=== PATIENT | female | born 1965 | race Caucasian/White ===

== ENCOUNTER 2025-03-05 12:01 | Emergency (ER) | payer BC, SELFPAY ==
[2025-03-05 12:03] VITALS: BP 124/83
[2025-03-05 12:29] LABS: % Basophils 1.1 % (0-2); % Eosinophils 2.3 % (0-6); % Immature Granulocytes 0.3 % (0-0.5); % Lymphocytes 30.8 % (20.5-51.1); % Monocytes 5.6 % (1.7-9.3); % Neutrophils 59.9 % (42.2-75.2); Absolute Basophils 0.1 10^3/uL (0-0.2); Absolute Eosinophils 0.3 10^3/uL (0-0.7); Absolute Lymphocytes 3.3 10^3/uL (1.2-3.4); Absolute Monocytes 0.6 10^3/uL (0.1-0.6); Absolute Neutrophils 6.4 10^3/uL (1.4-6.5); Hematocrit 37.6 % (37.0-47.0); Hemoglobin 12.9 g/dL (12.0-16.0); Mean Corp Hgb Conc. 34.3 g/dL (33.0-37.0); Mean Corpuscular Hgb 30.1 pg (27.0-31.0); Mean Corpuscular Volume 87.6 fL (81.0-99.0); Mean Platelet Volume 10.2 fL (7.4-10.4); Nucleated Red Blood Cells % 0 %; Platelet Count 382 10^3/uL (130-400); Red Blood Cell Count 4.29 10^6/uL (4.20-5.40); Red Cell Dist. Width 13.1 % (11.5-14.5); White Blood Cell Count 10.7 10^3/uL (4.8-10.8)
[2025-03-05 12:39] LABS: ALT (SGPT) 24 U/L (0-35); AST (SGOT) 21 U/L (14-36); Alkaline Phosphatase 70 U/L (38-126); Blood Urea Nitrogen 14 mg/dl (7-17); Calcium 10.1 mg/dl (8.4-10.2); Carbon Dioxide 23 mmol/L (22-30); Chloride 109 mmol/L (98-107); Glucose 91 mg/dl (70-99); Potassium 4.4 mmol/L (3.5-5.1); Sodium 140 mmol/L (135-145); Total Bilirubin 0.5 mg/dl (0.2-1.3); Total Protein 7.6 g/dl (6.3-8.2); eGFR > 60.00
[2025-03-05 12:49] LABS: Troponin I < 0.012 ng/ml
[2025-03-05 13:41] VITALS: BP 111/70
--- NOTE | 2025-03-05 13:54 | ED.GENMED ---
History of Present Illness
General
Chief Complaint: Chest Pain
Source: patient
Exam Limitations: none
Time Seen by Provider: 03/05/25 13:30
History of Present Illness
History of Present Illness:
59yoF with a history of depression presenting with her for evaluation of palpitations. Patient was sick with COVID about 2 weeks ago. She was prescribed Paxlovid but stopped taking this after several days due to diarrhea. She started to
experience palpitations with activity about a week and a half ago. She states her heart rate will go up to the 130-140 range with activity and she experiences lightheadedness and sweating. She has minimal symptoms at rest. She was seen by her PCP
last week for the same and had an EKG which showed sinus tachycardia. She was referred to cardiology but does not have an appointment until March 22. Patient's heart rate went up to 130s again today while she was walking in her home so she decided
to come to the ED. She denies any chest pain or syncope. No caffeine or alcohol use. No prior history of heart disease.
Phy Exam
General Physical Exam
General Presentation: well appearing and no apparent distress
General Skin: warm and dry
General Habitus: normal
General Mental: alert
ENT Exam
ENT Exam: normocephalic
Cardiovascular Exam
Cardiovascular Exam: regular rate/rhythm, no edema, no murmur and normal peripheral pulses
Pulmonary Exam
Pulmonary Exam: lungs clear, no respiratory distress, no rales, no crackles, no rhonchi and no wheezing
Neurological Exam
Neurological Exam: alert
Gina Coma Scale
Eye Opening: Spontaneous
Verbal Response: Oriented
Motor Response: Obeys Commands
GCS Total Score: 15
Skin Exam
Skin Exam: normal color and warm/dry
Psychiatric Exam
Psychiatric Exam: normal mood/affect
Scores
Heart Score for Chest Pain Patients
STEMI patient?: No
History: Slightly or Non-Suspicious
ECG: Normal
Age: >45 - <65 years
Risk Factors: No Risk Factors
Troponin: </= Normal Limit
Heart Score for Chest Pain Patients: 1
Heart Score Risk: 2.5% MACE over next 6 weeks
Course
Orders/Labs/Results
Orders:
Orders
03/05/25 12:03
Electrocardiogram (*1) Urgent
Reason for Study: Chest Pain
EKG- Treatment ONCE
03/05/25 12:16
Complete Blood Count/With Diff Urgent
Comprehensive Metabolic Panel Urgent
Magnesium Urgent
Comment: ADD ON
TSH Urgent
Comment: ADD ON
Troponin I Urgent
03/05/25 13:30
Add On- LAB Urgent
Tests Added?: TSH, magnesium
03/05/25 13:33
Cardiac Monitoring- Treatment ONCE
03/05/25 13:51
0.9% Sodium Chloride 1000 ml [Nss] 1,000 ml IV BOLUS
03/05/25 14:01
D-Dimer Urgent
Abnormal Lab Results
03/05/25
12:16
Chloride 109 H mmol/L
(98-107)
03/05/25 12:16
03/05/25 12:16
Vital Signs
Initial and Last Documented VS:
Initial Vital Signs
Temp Pulse Resp BP Pulse Ox
98.0 F 98 16 124/83 98
03/05/25 12:03 03/05/25 12:03 03/05/25 12:03 03/05/25 12:03 03/05/25 12:03
Last Documented Vital Signs
Temp Pulse Resp BP Pulse Ox
98.0 F 86 14 108/71 96
03/05/25 12:03 03/05/25 15:00 03/05/25 15:00 03/05/25 15:00 03/05/25 15:00
MDM/Problems Addressed
Differential Diagnosis Includes:
59yoF here with palpitations x 1.5 weeks. Started after having COVID. Reports tachycardia and dizziness with ambulation. No symptoms at rest. HR goes up to the 130-140 range at the highest. VSS. She is well appearing in no distress. Exam reassuring.
Differential diagnosis includes but is not limited to: arrhythmia, orthostasis, thyroid dysfunction, electrolyte abnormality, less likely but consider PE
Initial ED plan: Workup obtained in triage. Electrolytes and troponin WNL. EKG shows sinus tachycardia with a HR 101. No ectopy or ischemic changes. Will add on magnesium, TSH, and D-dimer. IV fluid bolus.
*EKG
Interpreted by ED Provider?: Yes
EKG Intrepretation Date: 03/05/25
Heart Rate: 101
Rate: tachycardiac
Rhythm: sinus
[place]: normal axis
Interval: normal interval
QRS Pattern: normal QRS
Ischemia: no ischemia
*Critical Care Note
Total Time (30-74mins, 75-104mins- exclusive of procedures): Not Applicable
Update Note
Update Note:
Magnesium and TSH normal. D-dimer normal making PE very unlikely. No telemetry events during ED stay. No indication for hospitalization. Unclear etiology of symptoms. Possible inappropriate sinus tach/autonomic dysfunction from recent COVID
infection. Advised increased fluid and salt intake. Patient has an appt with cardiology in 2.5 weeks. ED return precautions reviewed. Patient discharged in stable condition.
ED Attending Note
-
Portions of this chart may have been created with voice recognition software.� Occasional wrong word or��sound alike� substitutions may have occurred due to the inherent limitations of voice recognition software.
Discharge Plan
Departure
Patient Disposition: Home (Routine Discharge)
Date of Disposition: 03/05/25
Time of Disposition: 14:53
Patient with high blood pressure during this ER visit?: No
Discharge Problem:
Palpitations
Instructions: Palpitations - ED discharge instructions
Referrals:
Vinicius Bella MD [Family Provider, Family Practice]
Ace Oconnell MD [Active, Cardiology]
Activity Restrictions/Additional Instructions:
Increase your fluid and salt intake.
Please follow-up with your family doctor and cardiology. Return to the ER with any new or worsening symptoms.
Interventions
Interventions:
*Risk Screen - Suicide Last Done: 03/05/25 12:03
*Neglect/Abuse Screening Last Done: 03/05/25 12:03
*Nursing Disposition Last Done: 03/05/25 15:45
ED- Cardiac Assessment Last Done: 03/05/25 13:50
Discharge Date and Time
Discharge Date/Time: 03/05/25 15:45
Print Language: NEPALI
[2025-03-05 14:00] VITALS: BP 101/72
[2025-03-05] MEDS: NSS 1000 IV (14:02)
[2025-03-05 14:06] LABS: Magnesium 1.9 mg/dl (1.6-2.3)
[2025-03-05 14:26] LABS: D-Dimer 0.39 ug/mlFEU (0.00-0.50)
[2025-03-05 14:35] LABS: TSH 1.54 uIU/ml (0.47-4.68)
[2025-03-05 15:00] VITALS: BP 108/71
== END 2025-03-05 15:45 | disposition home or self-care (01) ==
LOC: EMR 12:01
PROVIDERS: Physician Assistant; EMERGENCY PHYSICIAN Emergency Medicine; FAMILY PHYSICIAN Family Medicine
DX: R00.2 Palpitations (principal); R42 Dizziness and giddiness; F32.A Depression, unspecified; Z86.16 Personal history of COVID-19; Z88.0 Allergy status to penicillin; Z91.040 Latex allergy status
CPT/HCPCS: 99284; 96360; 80053; 83735; 84443; 84484; 85025; 85379; 93005